=== PATIENT | female | born 1985 | race Caucasian/White ===

== ENCOUNTER → 2016-10-14 | Outpatient (CLI) | payer MEDICAID ==
--- NOTE | 2016-10-14 09:26 | DX ---
Right first finger - 3 views Indication: Pain. Fell several days ago. Comparison: None Findings: A 5 x 2.5 mm cortical fracture is avulsed off the ulnar base of the proximal phalanx of the thumb. Minimal callus formation has developed. The fracture fragment is retracted 1 to 2 mm from the donor site. The thumb is otherwise normal. Joint spaces are preserved. Impression: Subacute minimally distracted avulsion chip fracture (gamekeeper's thumb) off the ulnar b ase proximal phalanx.
== END ==
LOC: FIMAGING 08:37
PROVIDERS: ATTEND Family Medicine
DX: S62.511A Displaced fracture of proximal phalanx of right thumb, initial encounter for closed fracture (principal); W19.XXXA Unspecified fall, initial encounter

== ENCOUNTER 2016-12-29 08:09 | Emergency (ER) | payer MEDICAID ==
[2016-12-29 08:15] VITALS: RESP 18
--- NOTE | 2016-12-29 08:23 | CPEKG ---
Heart Rate: 64 RR Interval: 938 P-R Interval: 128 QRSD Interval: 96 QT Interval: 396 QTC Interval: 409 P Milton: 51 QRS Milton: 57 T Wave Milton: 37 EKG Severity - OTHERWISE NORMAL ECG - EKG Impression: SINUS ARRHYTHMIA, RATE 53-75 Electronically Signed By: Haresh Busby 29-Dec-2016 08:32:53
--- NOTE | 2016-12-29 08:41 | EDPHY ---
H & P Stated Complaint: r sided cp since wednesday/increased with movement cough Time Seen by Provider: 12/29/16 08:31 HPI/ROS: CHIEF COMPLAINT: RIGHT-SIDED CHEST PAIN HISTORY OF PRESENT ILLNESS: Patient is a 31-year-old female who comes to the emergency department complaining of right-sided chest pain that she thinks is musculoskeletal. It began after a fall she had on Wednesday skiing. She landed on her right chest. She has had rib fractures and a pneumothorax before but states that this feels different. She states that this feels more like a muscle strain or like an episode of costochondritis she once had. She has not had any recent viral type infections. She denies any travel. She does not smoke. She has not had any leg pain or swelling. No recent procedures. She does not take hormone pills. She does not have any difficulty breathing or shortness of breath. She does have reproducible pain with palpation or movement of her chest musculature REVIEW OF SYSTEMS: Constitutional: denies: chills, fever, recent illness, recent injury EENTM: denies: blurred vision, double vision, nose congestion Respiratory: denies: cough, shortness of breath Cardiac: denies: chest pain, irregular heart rate, lightheadedness, palpitations Gastrointestinal/Abdominal: denies: abdominal pain, diarrhea, nausea, vomiting, blood streaked stools Genitourinary: denies: dysuria, frequency, hematuria, pain Musculoskeletal: See HPI Skin: denies: lesions, rash, jaundice, bruising Neurological: denies: headache, numbness, paresthesia, tingling, dizziness, weakness Hematologic/Lymphatic: denies: blood clots, easy bleeding, easy bruising Immunologic/allergic: denies: HIV/AIDS, transplant EXAM: GENERAL: Well-appearing, well-nourished and in no acute distress. HEAD: Atraumatic, normocephalic. EYES: Pupils equal round and reactive to light, extraocular movements intact, sclera anicteric, conjunctiva are normal. ENT: TMs normal, nares patent, oropharynx clear without exudates. Moist mucous membranes. NECK: Normal range of motion, supple without lymphadenopathy or JVD. LUNGS: Breath sounds clear to auscultation bilaterally and equal. No wheezes rales or rhonchi. HEART: Regular rate and rhythm without murmurs, rubs or gallops. Pain to right anterior chest with palpation or movement of shoulder. ABDOMEN: Soft, nontender, normoactive bowel sounds. No guarding, no rebound. No masses appreciated. BACK: No CVA tenderness, no spinal tenderness, step-offs or deformities EXTREMITIES: Normal range of motion, no pitting or edema. No clubbing or cyanosis. NEUROLOGICAL: Cranial nerves II through XII grossly intact. Normal speech, normal gait. 5/5 strength, normal movement in all extremities, normal sensation PSYCH: Normal mood, normal affect. SKIN: Warm, dry, normal turgor, no visible rashes or lesions. Source: Patient Exam Limitations: No limitations - Personal History LMP (Females 10-55): Over 28 Days Ago Current Tetanus/Diphtheria Vaccine: Unsure Tetanus Vaccine Date: < 10 years - Medical/Surgical History Hx Asthma: Yes Hx Chronic Respiratory Disease: No Hx Diabetes: No Hx Cardiac Disease: No Hx Renal Disease: No Hx Cirrhosis: No Hx Alcoholism: No Hx HIV/AIDS: No Hx Splenectomy or Spleen Trauma: No Other PMH: asthma, pneumothorax - Family History Significant Family History: No pertinent family hx - Social History Smoking Status: Never smoked Alcohol Use: None Drug Use: None Constitutional: Initial Vital Signs Temperature (C) 36.5 C 12/29/16 08:13 Heart Rate 74 12/29/16 08:13 Respiratory Rate 18 12/29/16 08:13 Blood Pressure 126/78 H 12/29/16 08:13 O2 Sat (%) 96 12/29/16 08:13 O2 Delivery Mode Room Air Allergies/Adverse Reactions: No Known Allergies Allergy (Verified 12/29/16 08:12) Home Medications: Medication Instructions Recorded Advair 100/50 (RX) 12/14/13 Albuterol 12/14/13 Singulair 12/14/13 Claritin 03/08/15 FLUTICASONE PROPIONATE 03/08/15 AZITHROMYCIN [Z-PACK] 250 mg PO DAILY #6 tab 12/29/16 Hydrocodone/APAP 5/325 [Hume 1 - 2 each PO Q4 PRN #7 tab 12/29/16 5/325] Medical Decision Making - Diagnostics EKG Interpretation: An EKG obtained and was read and documented in trace view. Please see trace view for full reading and report. Sinus rhythm, no acute ischemic changes Imaging: I viewed and interpreted images myself ED Course/Re-evaluation: 10:30 a.m. the patient is feeling much better. We discussed her x-ray results which are reassuring. She thinks this is primarily musculoskeletal. She does endorse some signs of infection such as a runny nose. She thought that this is primarily allergies. I will prescribe her azithromycin in case she develops bronchitis although I think this is less likely. She agrees with this plan. She declines any further workup or testing at this time. She is asking for a couple of Vicodin tablets that she can take to help her sleep. Her PERC score is negative. Differential Diagnosis: Partial list of the Differential diagnosis considered include but were not limited to; chest pain, bronchitis, rib fracture and although unlikely based on the history and physical exam, I also considered acute coronary disease, arrhythmia, PE. I discussed these differential diagnoses and the plan with the patient as well as the usual and expected course. The patient understands that the diagnosis is provisional and that in medicine we are not always correct and that further workup is often warranted. Usual and customary warnings were given. All of the patient's questions were answered. The patient was instructed to return to the emergency department should the symptoms at all worsen or return, otherwise to followup with the physician as we discussed. Departure - Departure Disposition: Home, Routine, Self-Care Clinical Impression: Chest wall pain Condition: Fair Instructions: Chest Wall Pain (ED) Referrals: Jet Huddleston MD [Primary Care Provider] - As per Instructions Prescriptions: AZITHROMYCIN [Z-PACK] 250 mg PO DAILY #6 tab Hydrocodone/APAP 5/325 [Hume 5/325] 1 - 2 each PO Q4 PRN #7 tab PRN Reason: Pain, Mild
[2016-12-29 09:25] VITALS: TEMP 98.4
[2016-12-29 10:55] VITALS: BP 129/65; PULSE 69; O2SAT 95
== END 2016-12-29 10:52 | disposition home or self-care (01) ==
DX: S29.9XXA Unspecified injury of thorax, initial encounter (principal); J45.909 Unspecified asthma, uncomplicated; V00.321A Fall from snow-skis, initial encounter; Y99.8 Other external cause status; Y93.23 Activity, snow (alpine) (downhill) skiing, snowboarding, sledding, tobogganing and snow tubing

== ENCOUNTER 2018-03-24 04:21 | Emergency (ER) | payer MEDICAID ==
--- NOTE | 2018-03-24 04:49 | EDPHY ---
H & P Stated Complaint: SI, wants eval Source: Patient - Personal History LMP (Females 10-55): Unknown Current Tetanus/Diphtheria Vaccine: Yes Tetanus Vaccine Date: < 10 years - Medical/Surgical History Hx Asthma: Yes Hx Chronic Respiratory Disease: No Hx Diabetes: No Hx Cardiac Disease: No Hx Renal Disease: No Hx Cirrhosis: No Hx Alcoholism: No Hx HIV/AIDS: No Hx Splenectomy or Spleen Trauma: No Other PMH: asthma, pneumothorax, depression, anxiety - Social History Smoking Status: Never smoked Time Seen by Provider: 03/24/18 04:49 HPI/ROS: HPI CHIEF COMPLAINT: SI, Depressed HISTORY OF PRESENT ILLNESS: 32-year-old female presents emergency room by private vehicle stating that she is feeling further depressed with suicidal ideation. She has a history of bipolar disorder but not on any medications. She is feeling more depressed and would like to speak to mental health. Past Medical History: History bipolar disorder. Depression. Past Surgical History: No recent surgery Social History: Homelessness, denies drugs alcohol tobacco. Family History: Noncontributory ROS REVIEW OF SYSTEMS: A comprehensive 10 point review of systems is otherwise negative aside from elements mentioned in the history of present illness. Exam Constitutional triage nursing summary reviewed, vital signs reviewed, awake/ alert. Eyes normal conjunctivae and sclera, EOMI, PERRLA. HENT normal inspection, atraumatic, moist mucus membranes, no epistaxis, neck supple/ no meningismus, no raccoon eyes. Respiratory clear to auscultation bilaterally, normal breath sounds, no respiratory distress, no wheezing. Cardiovascular rate normal, regular rhythm, no murmur, no edema, distal pulses normal. Gastrointestinal soft, non-tender, no rebound, no guarding, normal bowel sounds, no distension, no pulsatile mass. Genitourinary no CVA tenderness. Musculoskeletal no midline vertebral tenderness, full range of motion, no calf swelling, no tenderness of extremities, no meningismus, good pulses, neurovascularly intact. Skin pink, warm, & dry, no rash, skin atraumatic. Neurologic awake, alert and oriented x 3, AAOx3, moves all 4 extremities equally, motor intact, sensory intact, CN II-XII intact, normal cerebellar, normal vision, normal speech. Psychiatric flat affect, depressed, suicidal ideation Heme/Lymph/Immune no lymphadenopathy. Differential Diagnosis: Includes but is not limited to in a particular order mood disorder, bipolar disorder with depression, suicidal ideation Medical Decision Making: Plan for this patient blood draw for medical clearance. Patient will need mental health evaluation. Re-evaluation: 0456: Patient placed on M1 hold. Patient here with underlying bipolar disorder any medications. Here suicidal ideation and worsening depression. (Toro Zarate) Constitutional: Initial Vital Signs Temperature (C) 36.5 C 03/24/18 04:26 Heart Rate 75 03/24/18 04:26 Respiratory Rate 18 03/24/18 04:26 Blood Pressure 144/100 H 03/24/18 04:26 O2 Sat (%) 93 03/24/18 04:26 O2 Delivery Mode Room Air Allergies/Adverse Reactions: No Known Allergies Allergy (Verified 12/29/16 08:12) Home Medications: Medication Instructions Recorded Advair 100/50 (RX) 12/14/13 Albuterol 12/14/13 Singulair 12/14/13 Claritin 03/08/15 Dulera 200 Mcg/5 Mcg Inhaler 03/24/18 Medical Decision Making ED Course/Re-evaluation: 0618: Patient is sleeping at this time. Patient be signed over to Dr. Hawley at 7:00 a.m. Shift change. Patient pending mental evaluation. (Toro Zarate) Patient has remained stable At 1:05 p.m. Patient has been evaluated by mental health. They feel that she is appropriate for outpatient management. The hold is vacated (Dereck Hawley) Differential Diagnosis: Bipolar however appropriate for outpatient management (Dereck Hawley) - Data Points Laboratory Results: Laboratory Results 03/24/18 04:45 03/24/18 04:45 03/24/18 03/24/18 03/24/18 04:45 04:45 04:45 WBC RBC Hgb Hct MCV MCH MCHC RDW Plt Count MPV Neut % (Auto) Lymph % (Auto) Summit % (Auto) Eos % (Auto) Baso % (Auto) Nucleat RBC Rel Count Absolute Neuts (auto) Absolute Lymphs (auto) Absolute Monos (auto) Absolute Eos (auto) Absolute Basos (auto) Absolute Nucleated RBC Immature Gran % Immature Gran # Sodium 142 mEq/L mEq/L (135-145) Potassium 4.5 mEq/L mEq/L (3.3-5.0) Chloride 106 mEq/L mEq/L (97-110) Carbon Dioxide 24 mEq/l mEq/l (22-31) Anion Gap 12 mEq/L mEq/L (8-16) BUN 10 mg/dL mg/dL (7-23) Creatinine 0.7 mg/dL mg/dL (0.6-1.0) Estimated GFR > 60 Glucose 76 mg/dL mg/dL (70-100) Calcium 9.7 mg/dL mg/dL (8.5-10.4) Beta HCG, Qual NEGATIVE Urine Opiates Screen NEGATIVE (NEGATIVE) Urine Barbiturates NEGATIVE (NEGATIVE) Ur Phencyclidine Scrn NEGATIVE (NEGATIVE) Ur Amphetamine Screen NEGATIVE (NEGATIVE) U Benzodiazepines Scrn NEGATIVE (NEGATIVE) Urine Cocaine Screen NEGATIVE (NEGATIVE) U Marijuana (THC) Screen NON-NEGATIVE H (NEGATIVE) Ethyl Alcohol 38 mg/dL H mg/dL (0-10) 03/24/18 04:45 WBC 9.43 10^3/uL 10^3/uL (3.80-9.50) RBC 5.61 10^6/uL H 10^6/uL (4.18-5.33) Hgb 15.7 g/dL g/dL (12.6-16.3) Hct 47.5 % H % (38.0-47.0) MCV 84.7 fL fL (81.5-99.8) MCH 28.0 pg pg (27.9-34.1) MCHC 33.1 g/dL g/dL (32.4-36.7) RDW 13.7 % % (11.5-15.2) Plt Count 384 10^3/uL 10^3/uL (150-400) MPV 10.8 fL fL (8.7-11.7) Neut % (Auto) 62.0 % % (39.3-74.2) Lymph % (Auto) 23.1 % % (15.0-45.0) Summit % (Auto) 8.2 % % (4.5-13.0) Eos % (Auto) 5.6 % % (0.6-7.6) Baso % (Auto) 0.6 % % (0.3-1.7) Nucleat RBC Rel Count 0.0 % % (0.0-0.2) Absolute Neuts (auto) 5.84 10^3/uL 10^3/uL (1.70-6.50) Absolute Lymphs (auto) 2.18 10^3/uL 10^3/uL (1.00-3.00) Absolute Monos (auto) 0.77 10^3/uL 10^3/uL (0.30-0.80) Absolute Eos (auto) 0.53 10^3/uL H 10^3/uL (0.03-0.40) Absolute Basos (auto) 0.06 10^3/uL 10^3/uL (0.02-0.10) Absolute Nucleated RBC 0.00 10^3/uL 10^3/uL (0-0.01) Immature Gran % 0.5 % % (0.0-1.1) Immature Gran # 0.05 10^3/uL 10^3/uL (0.00-0.10) Sodium Potassium Chloride Carbon Dioxide Anion Gap BUN Creatinine Estimated GFR Glucose Calcium Beta HCG, Qual Urine Opiates Screen Urine Barbiturates Ur Phencyclidine Scrn Ur Amphetamine Screen U Benzodiazepines Scrn Urine Cocaine Screen U Marijuana (THC) Screen Ethyl Alcohol Medications Given: Discontinued Medications Albuterol Sulfate (Proventil Inh Prepack) 1 mdi CRISTIN CASEY ONE Stop: 03/24/18 09:07 Last Admin: 03/24/18 09:15 Dose: 1 mdi Departure - Departure Disposition: Home, Routine, Self-Care Clinical Impression: Suicidal ideation Bipolar disorder Qualifiers: Active/Remission status: currently active Current bipolar episode type: depressed Current episode severity: mild Qualified Code(s): F31.31 - Bipolar disorder, current episode depressed, mild Condition: Fair Instructions: Bipolar Disorder (ED) Additional Instructions: Follow up with mental health as they have indicated Return for further thoughts of harming herself or others Referrals: Jet Huddleston MD [Primary Care Provider] - 2-3 days, call for appt.
[2018-03-24 06:17] LABS: PLATELET COUNT 384 10^3/uL (150-400)
[2018-03-24] MEDS ORDERED: ALBUTEROL INH PREPACK MDI TAKEHOME ONE (09:06)
[2018-03-24 13:40] VITALS: BP 117/82
== END 2018-03-24 13:39 | disposition home or self-care (01) ==
DX: R45.851 Suicidal ideations (principal); F31.31 Bipolar disorder, current episode depressed, mild; J45.909 Unspecified asthma, uncomplicated
CPT/HCPCS: 80305; G0480

== ENCOUNTER 2018-04-08 22:06 | Emergency (ER) | payer MEDICAID ==
[2018-04-08] MEDS ORDERED: CEPHALEXIN 500MG PREPACK#4 BTL TAKEHOME ONE (22:43)
--- NOTE | 2018-04-08 22:43 | EDPHY ---
H & P Stated Complaint: Poss toe infection after having nail removed 10 days ago. Time Seen by Provider: 04/08/18 22:20 HPI/ROS: Chief Complaint: Toenail infection HPI: 32-year-old woman had her right great toenail removed 10 days ago for a paronychia. For the past several days she has been having increasing redness and discharge from the nail bed site with increasing pain. No fevers or chills. No redness streaking up her foot. She has had multiple male infections in the past. She was not placed on any antibiotics. No fevers or chills. She is able to ambulate. ROS: 10 point Review of Systems is negative except as noted in the HPI. PMH: Asthma Social History: No smoking, no alcohol, no recreational drug use Family History: non-contributory Physical Exam: General: Awake, alert, no acute distress Right foot: Patient has erythema and purulent discharge from the nail bed of her right great toe. There is mild amount of fluctuance. There is erythema over the nail bed. Does not cross the interphalangeal joint. No pain with flexion or extension. Skin: Per foot exam - Personal History Current Tetanus/Diphtheria Vaccine: Yes Current Tetanus Diphtheria and Acellular Pertussis (TDAP): Yes Tetanus Vaccine Date: < 10 years - Medical/Surgical History Hx Asthma: Yes Hx Chronic Respiratory Disease: No Hx Diabetes: No Hx Cardiac Disease: No Hx Renal Disease: No Hx Cirrhosis: No Hx Alcoholism: No Hx HIV/AIDS: No Hx Splenectomy or Spleen Trauma: No Other PMH: asthma, , pneumothorax, depression, anxiety, pneumonia - Social History Smoking Status: Never smoked Constitutional: Initial Vital Signs Temperature (C) 36.5 C 04/08/18 22:08 Heart Rate 86 04/08/18 22:08 Respiratory Rate 17 04/08/18 22:08 Blood Pressure 119/73 04/08/18 22:08 O2 Sat (%) 96 04/08/18 22:08 O2 Delivery Mode Room Air Allergies/Adverse Reactions: No Known Allergies Allergy (Verified 12/29/16 08:12) Home Medications: Medication Instructions Recorded Albuterol 12/14/13 Singulair 12/14/13 Claritin 03/08/15 Dulera 200 Mcg/5 Mcg Inhaler 03/24/18 Cephalexin [Keflex (*)] 500 mg PO Q6H #36 cap 04/08/18 Medical Decision Making Procedures: Procedure: Digital nerve block, indication is digit anesthesia for procedure. Patient was prepped with chlorhexidine Skin prep. 0.5% bupivacaine was infiltrated in the medial in lateral aspects with a dorsal approach at the base of the proximal phalanx with blockage of both dorsal and volar nerves. Total of 1 mL was infiltrated. There were no complications. Procedure was performed by myself. Procedure: Abscess drainage. The patient's abscess was located on the right great toe. I obtained verbal consent from the patient to drain the abscess who was informed about the possibility of bleeding and pain. The abscess was incised with forceps with blunt dissection and a small amount of purulent drainage was expressed. I placed some packing. The patient tolerated the procedure well. The procedure was performed by myself. Departure - Departure Disposition: Home, Routine, Self-Care Clinical Impression: Paronychia, toe Condition: Good Instructions: Paronychia (ED) Additional Instructions: Leave the dressing in place for 2 days, then remove. Soak in warm soapy water twice a day. Please take her full course of antibiotics. Follow up with primary care physician in 3-4 days for wound check. Referrals: Jet Huddleston MD [Primary Care Provider] - As per Instructions Prescriptions: Cephalexin [Keflex (*)] 500 mg PO Q6H #36 cap
[2018-04-08 23:17] VITALS: BP 127/86
== END 2018-04-08 23:15 | disposition home or self-care (01) ==
PROC: 0H9MXZZ Drainage of Right Foot Skin, External Approach (ICD-10-PCS; principal; 2018-04-08)
DX: L03.031 Cellulitis of right toe (principal); J45.909 Unspecified asthma, uncomplicated

== ENCOUNTER 2018-06-09 22:05 | Observation (INO) | payer MEDICAID ==
[2018-06-09] MEDS ORDERED: IPRATROPIUM/ALBUTEROL 3 ML DEYVIAL ONE (22:07)
[2018-06-09] MEDS ORDERED: methylPREDNISolone SOD SUCC 125 MG/2 ML VIAL ONE (22:12)
[2018-06-09] MEDS ORDERED: MAGNESIUM SULF 1 GM/DEXTROSE 100 ML BAG IV ONE (22:12)
[2018-06-09] MEDS ORDERED: IPRATROPIUM/ALBUTEROL 3 ML DEYVIAL IH ONE ×2 (22:14→22:22)
[2018-06-09] MEDS ORDERED: methylPREDNISolone SOD SUCC 125 MG/2 ML VIAL IVP ONE (22:14)
[2018-06-09] MEDS ORDERED: MAGNESIUM SULF 1 GM/DEXTROSE 100 ML IV ONE (22:14)
--- NOTE | 2018-06-09 22:17 | EDPHY ---
H & P Time Seen by Provider: 06/09/18 22:07 HPI/ROS: Chief Complaint: Difficulty breathing HPI: 32-year-old woman with a history of asthma which has been difficult to control in the past presenting with 2 days of worsening wheezing and cough and tightness in her chest. Patient has been using her nebulizer at home with minimal relief. No fevers or chills. She has a dry cough. Says that "everything"is a trigger. She has been hospitalized in the past. She has been using her controlled medications. ROS: 10 systems were reviewed and were negative except those elements noted in the HPI. PMH: Asthma Social History: No smoking, no alcohol, no recreational drug use Family History: non-contributory Physical Exam: Gen: Awake, Alert, No Distress HEENT: Nose: no rhinorrhea Eyes: PERRLA, EOMI Mouth: Moist mucosa Neck: Supple, no JVD Chest: nontender, limited air movement, diffuse expiratory wheezing, no focal rales or rhonchi Heart: S1, S2 normal, no murmur Abd: Soft, non-tender, no guarding Back: no CVA tenderness, no midline tenderness Ext: no edema, non-tender Skin: no rash Neuro: CN II-XII intact, Sensation grossly intact, Strength 5/5 in bilateral upper and lower extremities - Personal History Tetanus Vaccine Date: < 10 years - Medical/Surgical History Hx Asthma: Yes Hx Chronic Respiratory Disease: No Hx Diabetes: No Hx Cardiac Disease: No Hx Renal Disease: No Hx Cirrhosis: No Hx Alcoholism: No Hx HIV/AIDS: No Hx Splenectomy or Spleen Trauma: No Other PMH: asthma, , pneumothorax, depression, anxiety, pneumonia - Social History Smoking Status: Never smoked Constitutional: Initial Vital Signs Temperature (C) 36.3 C 06/09/18 22:15 Heart Rate 108 H 06/09/18 22:15 Respiratory Rate 24 H 06/09/18 22:15 Blood Pressure 134/91 H 06/09/18 22:15 O2 Sat (%) 84 L 06/09/18 22:15 O2 Delivery Mode Simple Mask O2 (L/minute) 6 Allergies/Adverse Reactions: environmental Allergy (Uncoded 06/09/18 22:16) Home Medications: Medication Instructions Recorded Albuterol 12/14/13 Singulair 12/14/13 Claritin 03/08/15 Dulera 200 Mcg/5 Mcg Inhaler 03/24/18 Medical Decision Making ED Course/Re-evaluation: Patient presenting with significant respiratory distress. Will treat with a DuoNeb, Solu-Medrol, IV magnesium and reassess. 2219 patient is still wheezing but improved. Will treat with a 2nd DuoNeb. Patient has received the Solu-Medrol. Magnesium is currently hanging. Oxygen saturations in the high 90s on room air. 2244 patient has completed her 2nd DuoNeb. Still has diffuse expiratory wheezing complaining she is complaining of some tightness and aching in her chest and lower back. I have ordered 50 mg of Toradol IV. I have also ordered a continuous neb. I have paged the hospitalist for admission. - Data Points Medications Given: Magnesium Sulfate/Dextrose (Magnesium Sulf 1 Gm (Premix)) 100 mls @ 100 mls/hr IV EDNOW ONE Stop: 06/09/18 23:13 Last Admin: 06/09/18 22:17 Dose: 100 mls Discontinued Medications Albuterol/Ipratropium (Duoneb) 3 ml IH EDNOW ONE Stop: 06/09/18 22:15 Last Admin: 06/09/18 22:16 Dose: 3 ml Albuterol/Ipratropium (Duoneb) 3 ml IH EDNOW ONE Stop: 06/09/18 22:23 Last Admin: 06/09/18 22:26 Dose: 3 ml Ketorolac Tromethamine (Toradol) 15 mg IVP EDNOW ONE Stop: 06/09/18 22:39 Last Admin: 06/09/18 22:43 Dose: 15 mg Methylprednisolone Sodium Succinate (Solu-Medrol) 125 mg IVP EDNOW ONE Stop: 06/09/18 22:15 Last Admin: 06/09/18 22:16 Dose: 125 mg Departure - Departure Disposition: [facility] Inpatient Acute Clinical Impression: Exacerbation of asthma Condition: Fair
[2018-06-09] MEDS ORDERED: KETOROLAC 15 MG/1 ML SDV IVP ONE (22:38)
[2018-06-09] MEDS ORDERED: ALBUTEROL 3 ML DEYVIAL IH ONE (22:40)
[2018-06-09 23:01] LABS: PLATELET COUNT 337 10^3/uL (150-400)
[2018-06-09] MEDS ORDERED: diphenhydrAMINE 25 MG CAP PO PRN (23:04)
[2018-06-09] MEDS ORDERED: LORazepam 0.5 MG TAB PO PRN (23:04)
[2018-06-09] MEDS ORDERED: HYDROCODONE/APAP 5/325 TAB PO PRN (23:04)
[2018-06-09] MEDS ORDERED: ALBUTEROL 3 ML DEYVIAL IH PRN (23:04)
[2018-06-09] MEDS ORDERED: ACETAMINOPHEN 325 MG TAB PO PRN (23:04)
[2018-06-09] MEDS ORDERED: ONDANSETRON 4 MG/2 ML VIAL IVP PRN (23:04)
[2018-06-09] MEDS ORDERED: NS 1,000 ML IV SCH (23:15)
--- NOTE | 2018-06-09 23:52 | PDGENHP ---
History and Physical - Chief Complaint Shortness of breath and wheezing - History of Present Illness Source-patient provides history appears reliable. EMR was reviewed and case discussed with ED provider. HPI -this is a pleasant 32-year-old female with past medical history significant for asthma, bipolar disorder, osteoporosis, PCOS who presents emergency department today with complaints of 1 day history of acute exacerbation of shortness of breath and wheezing. Patient denies any preceding viral type syndromes which normally precipitates her symptoms so acutely. Patient denies any fevers chills, no rhinorrhea or sore throat until just after this last continuous nebulizer. She denies any central chest pain but does note that bilaterally in her lower chest she has pleuritic-type chest pain with inspiration. She does report that she had a singular sharp substernal chest pain that resolved as quickly as it came and was not reproducible. Patient notes that she has not been compliant with her Dulera therapy generally will remember to take in the morning but forgets in the evening. In the last several months patient does note that her asthma symptoms have been worsening and she is required to use more albuterol nebulizers and inhalers. Patient does report that she has a had a dry cough the since her symptoms worsen. In the emergency department, patient has been treated with continuous nebulizers with albuterol, DuoNeb, and received magnesium. She has continued to have slow progression in her respiratory status. Patient reports that she continues to feel poorly but does feel like she is able to take in a deeper breath. History Information - Allergies/Home Medication List Allergies/Adverse Reactions: environmental Allergy (Uncoded 06/09/18 22:16) Home Medications: Albuterol 12/14/13 [Last Taken Unknown] Singulair 12/14/13 [Last Taken Unknown] Claritin 03/08/15 [Last Taken Unknown] Dulera 200 Mcg/5 Mcg Inhaler 03/24/18 [Last Taken Unknown] I have personally reviewed and updated: family history, medical history, social history, surgical history - Past Medical History Additional medical history: Asthma with history of postviral pneumonia x6. Patient denies any hospitalizations or requirement for intubation for her asthma previously. PCOS. Allergies. Bipolar disorder not on any treatment. History of traumatic pneumothorax after skiing manage conservatively. Osteoporosis with chronic stress fracture in the left leg and foot, rib fractures, clavicle fractures and re-injury - Surgical History Additional surgical history: . were removed benign - Family History Additional family history: Sister-asthma. Negative family history for diabetes or hypertension. - Social History Smoking Status: Never smoked Alcohol Use: Heavy (Patient notes that she has been drinking on a daily basis for the past year. She does not clarify what she has been drinking or how much. ) Drug Use: Marijuana (Patient reports that she utilizes marijuana variety of format on a regular basis. But has been trying to decrease this.) Additional social history: Cor status-full. Review of Systems Review of Systems: ROS: 10pt was reviewed & negative except for what was stated in HPI & below Constitutional: Reports: no symptoms, chills, fever EENMT: Reports: nose congestion. Denies: ear pain, blurred vision, sore throat Cardiac: Reports: chest pain (Bilateral lower pleuritic chest pain). Denies: lightheadedness Respiratory: Reports: cough (Dry cough), shortness of breath, wheezing Gastrointestinal: Reports: no symptoms Genitourinary: Reports: no symptoms Muscolosketal: Reports: no symptoms Skin: Reports: no symptoms Neurological: Reports: no symptoms Hematologic/Lymphatic: Reports: no symptoms Physical Exam Physical Exam: Temp Pulse Resp BP Pulse Ox 36.3 C 98 20 129/85 H 97 06/09/18 22:15 06/09/18 22:45 06/09/18 22:45 06/09/18 22:36 06/09/18 22:45 Constitutional: no apparent distress, obese, other (NAD. Pleasant adult female is sitting up in [facility]. She does appear quite fatigued. Receiving continuous neb.) Eyes: PERRL (Slightly decreased reactivity to light bilaterally but symmetric.) , anicteric sclera, EOMI, No scleral injection Ears, Nose, Mouth, Throat: no oral mucosal ulcers, dry mucous membranes, other ( Mask in place, ), No poor dentition Cardiovascular: no murmur, rub, or gallop, tachycardia, edema (Left foot and ankle with edema compared to the right. Patient notes this is chronic related to metatarsal fractures.) Peripheral Pulses: 1+: dorsalis-pedis (R), dorsalis-pedis (L) Respiratory: no respiratory distress, expiratory wheeze, other (Airways quite diminished in all lung dowd at time of my interview in the ED.), No inspiratory crackles, No respiratory distress Gastrointestinal: normoactive bowel sounds, soft, non-tender abdomen, no palpable masses, other (Positive bowel sounds soft nontender palpation no rebound guarding or masses appreciated.), No distension Genitourinary: no bladder tenderness, No gutiérrez in urethra Skin: warm, normal color, no rashes or abrasions, No erythema, No rash Musculoskeletal: full muscle strength, no muscle tenderness, other (Patient moves all extremities while lying down.), No generalized weakness Neurologic: AAOx3, sensation intact bilaterally, other (Grossly nonfocal.), No facial droop Psychiatric: interacting appropriately, not anxious, not encephalopathic, thought process linear, other (Patient denies any SI or HI. No immediate plans to harm self or others.) Lab Data & Imaging Review 06/09/18 22:45 06/09/18 22:45 WBC 10.71 10^3/uL (3.80-9.50) H 06/09/18 22:45 RBC 5.20 10^6/uL (4.18-5.33) 06/09/18 22:45 Hgb 14.8 g/dL (12.6-16.3) 06/09/18 22:45 Hct 43.7 % (38.0-47.0) 06/09/18 22:45 MCV 84.0 fL (81.5-99.8) 06/09/18 22:45 MCH 28.5 pg (27.9-34.1) 06/09/18 22:45 MCHC 33.9 g/dL (32.4-36.7) 06/09/18 22:45 RDW 13.1 % (11.5-15.2) 06/09/18 22:45 Plt Count 337 10^3/uL (150-400) 06/09/18 22:45 MPV 10.3 fL (8.7-11.7) 06/09/18 22:45 Neut % (Auto) 57.8 % (39.3-74.2) 06/09/18 22:45 Lymph % (Auto) 27.7 % (15.0-45.0) 06/09/18 22:45 [place] % (Auto) 8.0 % (4.5-13.0) 06/09/18 22:45 Eos % (Auto) 5.5 % (0.6-7.6) 06/09/18 22:45 Baso % (Auto) 0.7 % (0.3-1.7) 06/09/18 22:45 Nucleat RBC Rel Count 0.0 % (0.0-0.2) 06/09/18 22:45 Absolute Neuts (auto) 6.19 10^3/uL (1.70-6.50) 06/09/18 22:45 Absolute Lymphs (auto) 2.97 10^3/uL (1.00-3.00) 06/09/18 22:45 Absolute Monos (auto) 0.86 10^3/uL (0.30-0.80) H 06/09/18 22:45 Absolute Eos (auto) 0.59 10^3/uL (0.03-0.40) H 06/09/18 22:45 Absolute Basos (auto) 0.07 10^3/uL (0.02-0.10) 06/09/18 22:45 Absolute Nucleated RBC 0.00 10^3/uL (0-0.01) 06/09/18 22:45 Immature Gran % 0.3 % (0.0-1.1) 06/09/18 22:45 Immature Gran # 0.03 10^3/uL (0.00-0.10) 06/09/18 22:45 Sodium 137 mEq/L (135-145) 06/09/18 22:45 Potassium 3.6 mEq/L (3.3-5.0) 06/09/18 22:45 Chloride 107 mEq/L (97-110) 06/09/18 22:45 Carbon Dioxide 22 mEq/l (22-31) 06/09/18 22:45 Anion Gap 8 mEq/L (8-16) 06/09/18 22:45 BUN 15 mg/dL (7-23) 06/09/18 22:45 Creatinine 0.7 mg/dL (0.6-1.0) 06/09/18 22:45 Estimated GFR > 60 06/09/18 22:45 Glucose 138 mg/dL (70-100) H 06/09/18 22:45 Calcium 8.7 mg/dL (8.5-10.4) 06/09/18 22:45 Assessment & Plan Assessment: 32-year-old female with history of asthma, bipolar disorder, seasonal allergies presents emergency department with one-day history of sudden worsening shortness of breath and wheezing. #Exacerbation of asthma (Acute) - patient is status post nebulizer, magnesium, steroids. Patient with slowly improving respiratory status and requires further observation on medical floor. Continue with steroids in the morning. Pulmicort twice daily. Albuterol p.r.n.. Patient appears to have improving air movement since arrival to the ED where she had limited previously. Patient also notes that she feels like she can't actually talk more than a few word sentences. Given patient's complaint of poorly controlled asthma recommended that she follow up with pulmonology after discharge. Also encouraged patient to improve compliance with her home medications including her Dulera twice daily and continue to minimize exposure to triggers as possible. #High acute hypoxic respiratory failure - symptoms slowly improving continue management as noted above. Continues to require some oxygen support. # hyperglycemia-mildly elevated blood sugars. This was not fasting initially. No history of diabetes. Repeat BMP in the morning. Chronic medical problems # PCOS - patient on any hormone therapy. # bipolar disorder - untreated. Patient reports she currently does not have any SI or HI. #FEN - IV fluids for supplemental hydration. Electrolytes adequate did not require replacement. Advance diet as tolerated regular. #PPX-SCDs. Lovenox. #Cor status-full #Disposition-patient admitted observation status at this time overnight will. She has had slow progress with her asthma and requires overnight stay for close respiratory monitoring.
[2018-06-10] MEDS ORDERED: MONTELUKAST SODIUM 4 MG CHEWABLE TAB PO SCH (00:15)
[2018-06-10 07:53] VITALS: BP 119/77
[2018-06-10] MEDS ORDERED: BUDESONIDE 0.5 MG/2 ML AMPUL.NEB IH SCH (09:00)
[2018-06-10] MEDS ORDERED: methylPREDNISolone SOD SUCC 125 MG/2 ML VIAL IVP SCH (09:00)
[2018-06-10] MEDS ORDERED: PNEUMOCOCCAL 0.5ML VACCINE VIAL IM ONE (11:42)
[2018-06-10] MEDS ORDERED: IPRATROPIUM/ALBUTEROL 3 ML DEYVIAL IH PRN (11:56)
--- NOTE | 2018-06-10 13:59 | PDDCSUM ---
Discharge Summary Discharge Summary: Date of Admission: 06/09/2018 Date of Discharge: 06/10/2018 Consults: N/A Followup: PCP, Pulmonology Hospital Course Problem List: 32-year-old female with history of asthma, bipolar disorder, seasonal allergies presents emergency department with one-day history of sudden worsening shortness of breath and wheezing. #Exacerbation of asthma (Acute) - patient is status post nebulizer, magnesium, steroids. Patient with improved respiratory status on room air. Transitioned from IV Solumedrol to PO Prednisone for discharge, she will complete a 5 day total course of steroids. Pulmicort twice daily. Albuterol p.r.n.. Encouraged patient to improve compliance with her home medications including her Dulera twice daily (was mostly taking it only once daily) and continue to minimize exposure to triggers as possible. Prescribed Duonebs for home. #High acute hypoxic respiratory failure - Saturating well on room air this morning, weaned overnight. # hyperglycemia-mildly elevated blood sugars. This was not fasting initially. No history of diabetes. Followup with PCP. Chronic medical problems # PCOS - patient on any hormone therapy. # bipolar disorder - untreated. Patient reports she currently does not have any SI or HI. Time spent on discharge was >35 minutes with >50% of time spent on patient education and counseling.
[2018-06-10] MEDS ORDERED: MONTELUKAST SODIUM 10 MG TAB PO SCH (18:00)
[2018-06-11] MEDS ORDERED: predniSONE 20 MG TAB PO SCH (09:00)
== END 2018-06-10 13:00 | disposition home or self-care (01) ==
LOC: F2W 23:59
PROVIDERS: ADMIT Family Medicine; ATTEND Family Medicine
DX: J45.901 Unspecified asthma with (acute) exacerbation (principal); J96.01 Acute respiratory failure with hypoxia; R73.9 Hyperglycemia, unspecified; F31.9 Bipolar disorder, unspecified; Z23 Encounter for immunization
CPT/HCPCS: 90471; 96365; 96375; 96376; 99285; G0378; G0008; G0009; J1885; J2930; J3475; J7613; J7626

== ENCOUNTER 2018-11-15 11:38 | Emergency (ER) | payer MEDICAID ==
[2018-11-15 11:54] VITALS: BP 121/72
[2018-11-15] MEDS ORDERED: ALBUTEROL 3 ML DEYVIAL IH ONE (12:16)
--- NOTE | 2018-11-15 12:58 | EDPHY ---
General Time Seen by Provider: 11/15/18 12:01 Narrative: CLINICAL IMPRESSION: Asthma exacerbation, influenza like syndrome ASSESSMENT/PLAN: 33-year-old female with a history of asthma and reported "17 episodes of pneumonia" presents to the emergency department with her daughter for 1 week of cough and URI symptoms. Patient states "I do not think this is pneumonia and I do not want a chest x-ray today". Vital signs stable on arrival. No hypoxia or respiratory distress. Lungs are clear. Patient is requesting tubing from os for her nebulizer machine. She did receive an albuterol neb here. She declined influenza testing however given her history of asthma and reported history of frequent pneumonia I did prescribe Tamiflu.. No signs of secondary bacterial upper lower respiratory disease. Encouraged PCP follow-up. Warning signs return to ED sooner alignment discharge. DIFFERENTIAL DX: Influenza, influenza like syndrome, viral syndrome, pharyngitis, reactive airway disease, asthma exacerbation CHIEF COMPLAINT: URI symptoms with cough HPI: 33-year-old female with known history of asthma, reports she has had pneumonia "at least 17 times" presents to the emergency department 1 week of URI symptoms with cough and increased asthma symptoms. No reported fever or chills. She states she ran out of her nebulizer tubing and would like some from us. She states her symptoms do not feel like prior pneumonia. She denies documented fevers at home and does not wish to have an influenza test. However she did not get a flu shot this year. No abdominal symptoms, nausea PAST MEDICAL HISTORY: Asthma See triage summary and nurse notes for addition applicable history Pertinent Past Surgical History: See triage note Family History: Ill family members with influenza at home Social History: Nonsmoker REVIEW OF SYSTEMS: A full 10 point review of systems was negative except for those mentioned in HPI. PHYSICAL EXAM: General Appearance: Alert, oriented, appropriate, cooperative, NAD, well hydrated, non-toxic appearing, VSS, no hypoxia. HEENT: TMs are clear bilaterally no perforation or FB, no injection, no evidence of serous or mucopurulent otitis. Oropharynx clear is no erythema or exudates, no tonsillar hypertrophy or asymmetry. Dentition without abnormality. Eyes: PERRLA, no acute vision change, nystagmus, swelling, discharge, pain or photosensitivity. Conjunctiva pink, no pallor or injection Neck: Supple, nontender, no lymphadenopathy, no midline pain, FROM, no meningismus. Respiratory: There are no retractions, lungs are clear to auscultation. Cardiac: Regular rate and rhythm, no murmurs or gallops. Skin: Warm, dry, no rashes, no nodules on palpation. MEDICAL DECISION MAKING: Patient was seen independently. Secondary supervising physician at time of evaluation was: Dr. Mcknight . Diagnosis: Influenza like syndrome. New, requires workup Summary: See Assessment and Plan for summary of ED visit Patient Progress: Stable for discharge. - History Smoking Status: Never smoked - Objective Vital Signs: Initial Vital Signs Temperature (C) 36.9 C 11/15/18 11:52 Heart Rate 93 11/15/18 11:52 Respiratory Rate 16 11/15/18 11:52 Blood Pressure 121/72 H 11/15/18 11:52 O2 Sat (%) 97 11/15/18 11:52 O2 Delivery Mode Room Air Allergies/Adverse Reactions: environmental Allergy (Uncoded 11/15/18 11:51) Home Medications: Medication Instructions Recorded Albuterol Sulfate [Proair Hfa] 2 puffs IN Q4-6PRN PRN 06/10/18 Albuterol [Proventil Neb] 3 ml IH Q2HRS PRN #15 deyvial 06/10/18 Cetirizine [ZyrTEC 10 mg (*)] 10 mg PO DAILY 06/10/18 Herbals/Supplements -Info Only 1 ea PO DAILY 06/10/18 Ipratropium/Albuterol [Duoneb (*)] 3 ml IH Q6HRS PRN #15 deyvial 06/10/18 Mometasone/Formoterol [Dulera 200 2 puffs IN Q4-6PRN PRN 06/10/18 Mcg/5 Mcg Inhaler] Montelukast Sodium [Singulair 10 10 mg PO DAILY@1800 06/10/18 mg (*)] Oseltamivir Phosphate [Tamiflu 75 75 mg PO BID #10 cap 11/15/18 mg (*)] Pseudoephedrine ER 11/15/18 predniSONE [Prednisone] 40 mg PO DAILY #20 tablet 11/15/18 Medications Given: Discontinued Medications Albuterol (Proventil Neb) 3 ml IH EDNOW ONE Stop: 11/15/18 12:17 Last Admin: 11/15/18 12:19 Dose: 3 ml Departure - Departure Disposition: Home, Routine, Self-Care Clinical Impression: Influenza Condition: Good Instructions: Influenza (ED) Additional Instructions: DISCHARGE INSTRUCTIONS FROM YOUR DOCTOR Thank you for visiting our emergency department today. You were treated by a physician assistant professor of mathematics today and your case was reviewed with our ED Attending physician. Please keep in mind that discharge from the emergency department does not mean that there is nothing wrong - it simply means that we have not identified an emergency condition that requires further evaluation or treatment in the hospital. You should always plan to follow up with primary care for re- evaluation of your condition in the next 2-3 days. If you have been referred to a specialist, please call as soon as possible (today or tomorrow) to schedule your follow up appointment at the appropriate time. A PRESCRIPTION FOR TAMIFLU WAS GIVEN. A PRESCRIPTION FOR STEROIDS WAS PROVIDED. FOLLOW UP WITH HER PRIMARY CARE. CONTINUE USING HER INHALERS. RETURN TO ED FOR WORSENING COUGH, SHORTNESS OF BREATH, HIGH FEVERS, BODY ACHES, OR ANY OTHER CONCERNS. People present with illnesses and injuries in different ways, and it is always possible that we have missed something. You may always return for re-evaluation if symptoms worsen or if they are not improving or if you develop new/different symptoms. Again, thank you for choosing our emergency department. We hope that you feel better. Referrals: Jet Huddleston MD [Primary Care Provider] - As per Instructions Prescriptions: Oseltamivir Phosphate [Tamiflu 75 mg (*)] 75 mg PO BID #10 cap predniSONE [Prednisone] 40 mg PO DAILY #20 tablet
== END 2018-11-15 13:03 | disposition home or self-care (01) ==
DX: J10.1 Influenza due to other identified influenza virus with other respiratory manifestations (principal); J45.909 Unspecified asthma, uncomplicated
CPT/HCPCS: J7613

== ENCOUNTER 2018-11-19 20:07 | Emergency (ER) | payer MEDICAID ==
[2018-11-19] MEDS ORDERED: IPRATROPIUM/ALBUTEROL 3 ML DEYVIAL IH ONE (20:30)
[2018-11-19] MEDS ORDERED: ALBUTEROL 3 ML DEYVIAL IH ONE (20:54)
[2018-11-19] MEDS ORDERED: predniSONE 20 MG TAB PO ONE (20:54)
--- NOTE | 2018-11-19 20:58 | EDPHY ---
H & P Time Seen by Provider: 11/19/18 20:40 HPI/ROS: CHIEF COMPLAINT: Asthma HISTORY OF PRESENT ILLNESS: Patient is a 33-year-old female with a history of asthma the presents emergency department with an asthma attack. Patient states her symptoms initially started on 11/10/2018. She took course of prednisone 40 mg x5 days. She has an appointment with Dr. Huddleston on 11/21/2018. Patient states that recently her boyfriend was diagnosed with influenza. She was seen in the emergency department and had a negative screen. She is given Tamiflu but since she had been sick for 4-5 days she did not take it. She states that her asthma has been flaring up for the past couple of days. She denies fevers or chills. She has nonproductive cough. She reports that she previously took Spiriva but her prescription ran out. She requests a prescription refill. REVIEW OF SYSTEMS: 10 systems were reveiwed and are negative with the exception of the elements mentioned in the history of present illness. Past Medical/Surgical History: Includes asthma, pneumonia, anxiety, osteoporosis, depression Past surgical history: Social history: Patient does not smoke Smoking Status: Never smoked Physical Exam: GENERAL: Well-appearing, in no acute distress, alert. HEENT: Eyes normal to inspection, normal pharynx, no signs of dehydration. NECK: Normal, supple. RESPIRATORY: Scattered wheezing. No rales or rhonchi. CVS: Regular rate and rhythm, no rubs, murmurs, or gallops. ABDOMEN: Soft, nontender, nondistended, no organomegaly. BACK: Normal to inspection, no CVA tenderness. SKIN: Normal color, no rash, warm, dry. No pallor. EXTREMITIES: No pedal edema, no calf tenderness, no Homans sign or cords, no joint swelling. NEURO/PSYCH: Alert and oriented, normal mood and affect, normal motor sensory exam. Constitutional: Initial Vital Signs Temperature (C) 37.1 C 11/19/18 20:19 Heart Rate 95 11/19/18 20:19 Respiratory Rate 18 11/19/18 20:19 Blood Pressure 141/82 H 11/19/18 20:19 O2 Sat (%) 95 11/19/18 20:19 O2 Delivery Mode Room Air Allergies/Adverse Reactions: environmental Allergy (Uncoded 11/19/18 20:17) Home Medications: Medication Instructions Recorded Albuterol Sulfate [Proair Hfa] 2 puffs IN Q4-6PRN PRN 06/10/18 Albuterol [Proventil Neb] 3 ml IH Q2HRS PRN #15 deyvial 06/10/18 Cetirizine [ZyrTEC 10 mg (*)] 10 mg PO DAILY 06/10/18 Herbals/Supplements -Info Only 1 ea PO DAILY 06/10/18 Ipratropium/Albuterol [Duoneb (*)] 3 ml IH Q6HRS PRN #15 deyvial 06/10/18 Mometasone/Formoterol [Dulera 200 2 puffs IN Q4-6PRN PRN 06/10/18 Mcg/5 Mcg Inhaler] Montelukast Sodium [Singulair 10 10 mg PO DAILY@1800 06/10/18 mg (*)] Pseudoephedrine ER 11/15/18 predniSONE [Prednisone] 40 mg PO DAILY #20 tablet 11/15/18 Ipratropium/Albuterol Sulfate 3 ml IH Q4 #20 ampul.neb 11/19/18 [Iprat-Albut 0.5-3(2.5) mg/3 ml] Tiotropium Inhaler [Spiriva 1 inh IH DAILY #1 mdi 11/19/18 Inhaler] predniSONE 20 mg PO DAILY 4 Days tab 11/19/18 Medical Decision Making - Diagnostics Imaging Results: Imaging Impressions Chest X-Ray 11/19/18 20:54 Impression: Findings most consistent with airways disease noted with no superimposed pneumonia identified. ED Course/Re-evaluation: In the emergency department I discussed possible etiologies with the patient. I answered all her questions. She was given a DuoNeb from triage. On my exam she still had wheezing and she was given a 2nd albuterol neb. She is given prednisone 60 mg orally. A chest x-ray was ordered. Chest x-ray: No acute disease noted. On recheck the patient was feeling better. The patient was given warnings prior to leaving. She requested a take-home prescription of DuoNeb. This was given. Differential Diagnosis: My differential includes but is not limited to asthma exacerbation, pneumonia, bronchitis, influenza, viral illness - Data Points Medications Given: Discontinued Medications Albuterol (Proventil Neb) 3 ml IH EDNOW ONE Stop: 11/19/18 20:55 Last Admin: 11/19/18 21:08 Dose: 3 ml Albuterol/Ipratropium (Duoneb) 3 ml IH EDNOW ONE Stop: 11/19/18 20:31 Last Admin: 11/19/18 20:33 Dose: 3 ml Prednisone (Prednisone) 60 mg PO EDNOW ONE Stop: 11/19/18 20:55 Last Admin: 11/19/18 21:08 Dose: 60 mg Departure - Departure Disposition: Home, Routine, Self-Care Clinical Impression: Exacerbation of asthma Qualifiers: Asthma severity: moderate Asthma persistence: unspecified Qualified Code(s): J45.901 - Unspecified asthma with (acute) exacerbation Condition: Good Instructions: Asthma (ED) Additional Instructions: Return with increasing shortness of breath, chest pain, fever or any other concerns. Referrals: Jet Huddleston MD [Primary Care Provider] - 11/21/18 Prescriptions: Ipratropium/Albuterol Sulfate [Iprat-Albut 0.5-3(2.5) mg/3 ml] 3 ml IH Q4 #20 ampul.neb predniSONE 20 mg PO DAILY 4 Days tab Tiotropium Inhaler [Spiriva Inhaler] 1 inh IH DAILY #1 mdi
[2018-11-19 23:20] VITALS: BP 126/86
== END 2018-11-19 23:21 | disposition home or self-care (01) ==
DX: J45.901 Unspecified asthma with (acute) exacerbation (principal)
CPT/HCPCS: J7512; J7613